=== PATIENT | female | born 1980 | race Caucasian/White ===

== ENCOUNTER 2018-12-23 20:27 | Emergency (ER) | payer OTHER ==
[~2018-12-23] VITALS: Wt 83.9 kg
[2018-12-23] MEDS ORDERED: VALIUM5 MG PO (20:36)
[2018-12-23] MEDS ORDERED: PROAIR HFA8.5 GM INH (22:56)
[2018-12-23] MEDS ORDERED: PREDNISONE10 MG PO (22:56)
[2018-12-23] MEDS ORDERED: ZITHROMAX250 MG PO (22:56)
== END 2018-12-23 23:47 | disposition home or self-care (01) ==
LOC: ED 20:27
DX: J40 Bronchitis, not specified as acute or chronic (principal); F17.200 Nicotine dependence, unspecified, uncomplicated; Z79.899 Other long term (current) drug therapy

== ENCOUNTER 2024-06-13 02:08 | Emergency (ER) | payer OTHER ==
[~2024-06-13 02:08] MED LIST: PREDNISONE10 MG PO; PROAIR HFA8.5 GM INH; VALIUM5 MG PO; ZITHROMAX250 MG PO
[2024-06-13 02:33] LABS: BASO # 0.1 10*3/uL (0.0-0.1); BASO % 0.5 % (0.0-1.0); EOS # 0.2 10*3/uL (0.0-0.4); EOS % 1.9 % (1.0-4.0); HEMATOCRIT 45.7 % (37.0-47.0); MEAN CELL VOLUME 95.8 fl (81.0-99.0); MEAN CORPUSCULAR HGB 31.4 pg (27.0-31.0); MEAN CORPUSCULAR HGB CONC 32.8 g/dl (33.0-37.0); MEAN PLATELET VOLUME 8.4 fl (9.6-12.3); MONO # 0.8 10*3/uL (0.1-1.0); MONO % 7.5 % (3.0-9.0); NEUT % 54.6 % (47.0-73.0); PLATELET COUNT AUTOMATED 382 10*3/uL (130-400); RED BLOOD COUNT 4.77 10*6/uL (4.10-5.10); RED CELL DISTRI WIDTH 12.2 % (0-14.5); WHITE BLOOD COUNT 10.9 10*3/uL (4.8-10.8)
[2024-06-13 02:39] LABS: BILIRUBIN Negative (Negative); BLOOD Negative (Negative); CLARITY Clear (Clear); COLOR Dark Yellow (Yellow); GLUCOSE Negative (Negative); KETONE Trace (Negative); LEUKO ESTERASE Trace (Negative); NITRITE Negative (Negative)
[2024-06-13 02:51] LABS: BACTERIA TRACE; CALCIUM OXALATE CRYSTALS Trace; MUCOUS 3+
[2024-06-13 02:52] LABS: BUN 6 mg/dl (9-23); CHLORIDE 106 mmol/L (98-107); POTASSIUM 3.1 mmol/L (3.4-5.1)
[2024-06-13] MEDS ORDERED: Sulfamethoxazole/Trimethopri 1 TAB TAB PO ONE (03:30)
[2024-06-13] MEDS ORDERED: POTASSIUM CHLORIDE 20 MEQ TAB PO ONE (03:30)
[2024-06-13] MEDS ORDERED: SEPTDS PO (03:41)
[2024-06-13] MEDS ORDERED: Bacitracin Zinc 14 GM TUBE T ONE (03:45)
== END 2024-06-13 03:43 | disposition home or self-care (01) ==
LOC: ED 02:08
PROVIDERS: Internal Medicine
DX: L03.311 Cellulitis of abdominal wall (principal); E87.6 Hypokalemia; F41.9 Anxiety disorder, unspecified; F17.200 Nicotine dependence, unspecified, uncomplicated; Z91.040 Latex allergy status; Z79.899 Other long term (current) drug therapy